=== PATIENT | male | born 1985 | race Caucasian/White ===

== ENCOUNTER 2018-06-10 08:49 | Emergency (ER) | payer SELFPAY ==
[2018-06-10 08:50] VITALS: BP 148/95; PULSE 90; RESP 20; TEMP 36.6; O2SAT 98; BMI 54.2
[2018-06-10] MEDS: Fluorescein 1 MG STRIP 1 STRIP OPHTHALMIC (09:47)
[2018-06-10] MEDS: Tetracaine 0.5% Ophthalmic Bottle OPHTHALMIC (09:48)
--- NOTE | 2018-06-10 09:53 | ED.VISSUMM ---
- ER Visit Summary Date of Service: 06/10/18 Chief Complaint: Right eye pain History of Present Illness: The patient is a 32 M with no primary care physician. He does not wear glasses or contacts. Reports he has pain in his right eye that began yesterday. He does complain of foreign body sensation, photophobia, and blurred vision. He denies any known injury. No direct trauma. No chemical exposure. Is not been welding. Physical Examination: Vitals: Stable. Afebrile. General: Well-nourished and well-developed. Head: Normocephalic atraumatic. Right eye: Diffuse conjunctival injection. He has a corneal abrasion at 5:00. There is no Shaggy sign. Pupils are equal round reactive to light. Neck: Supple, no lymphadenopathy. No JVD. Nontender. Cardiovascular: Regular rate and rhythm. No murmurs. Respiratory: No respiratory distress. Clear to auscultation bilaterally. Abdominal: Soft, nontender, nondistended, normal bowel sounds. No guarding, rebound, or peritoneal signs. Back: Nontender. Extremities: Nontender, no edema. Skin: Normal color, no rash. Neurologic: Alert and oriented ?3. Cranial nerves II through XII are intact. Normal strength and sensation. Psych: Normal affect. Emergency Department Course and Treatment: Patient had erythromycin ointment placed. He is resting comfortably. Treatment Plan: Patient will be discharged instructed to follow Dr. Garcia in 2 days for a repeat exam. He will be discharged with erythromycin ointment. Return to the emergency department for any worsening symptoms. Disposition: To home in improved and stable condition. Impression: 1. Corneal abrasion on right. This note was generated with [employer] dictation software. It may contain incorrect words, spelling, and punctuation that were not noted in review of the chart prior to signing ED Disposition - Plan for ED Patient: Disposition: Home or Assisted Living Instructions: ED Eye Injury Corneal Abrasion Referrals: Adrienne Garcia MD [STAFF PHYSICIAN] - 2 Days
[2018-06-10] MEDS: Erythromycin Base 1 OPTH.TUBE 1 APPLIC RIGHT EYE (10:18)
== END 2018-06-10 10:20 | disposition home or self-care (01) ==
LOC: ED 09:08
PROVIDERS: Emergency Provider Emergency Medicine
DX: S05.01XA Injury of conjunctiva and corneal abrasion without foreign body, right eye, initial encounter (principal); X58.XXXA Exposure to other specified factors, initial encounter; Y93.9 Activity, unspecified; Y92.9 Unspecified place or not applicable; Z72.0 Tobacco use
CPT/HCPCS: 99283

== ENCOUNTER 2018-06-12 19:21 | Emergency (ER) | payer SELFPAY ==
[2018-06-12 19:22] VITALS: BP 141/106; PULSE 105; RESP 14; TEMP 37.2; O2SAT 97; BMI 55.7
--- NOTE | 2018-06-12 22:04 | ED.VISSUMM ---
- ER Visit Summary Date of Service: 06/12/18 Chief Complaint: Right eye redness and pain History of Present Illness: The patient is a 32 M who presents with pain and redness to his right eye that has been constant for the past 2 days. Patient was seen here 2 days ago and was diagnosed with a corneal abrasion. Patient was given erythromycin ophthalmic ointment at that time. Patient states that his redness has not improved. Patient states he attempted to patch his eye closed at home with a Band-Aid. Patient admits to some discharge and drainage from the eye. Patient admits to some blurred vision. Physical Examination: Vital signs are stable. Patient is afebrile. Patient is in no acute distress. Pupils are equal, round, and reactive to light bilateral. Extraocular muscles are intact. Conjunctiva was injected on the right. Anterior chamber was clear. Tetracaine and fluorescein dye was applied. There is a large corneal abrasion over the central and inferior aspect of the right cornea. Shaggy sign was negative. There is no ulceration noted. Patient was unable to tolerate funduscopic examination. The remaining physical exam was within normal limits. Emergency Department Course and Treatment: Patient was given gentamicin ophthalmic ointment here. Patient was given a prescription for gentamicin ophthalmic drops. Patient was instructed to follow-up with ophthalmology in 2-3 days. Patient understood and was agreeable with the plan. All questions were answered. Disposition: Discharge home Impression: Corneal abrasion right eye This note was generated with [employer] dictation software. It may contain incorrect words, spelling, and punctuation that were not noted in review of the chart prior to signing ED Disposition - Plan for ED Patient: Disposition: Home or Assisted Living Instructions: ED Eye Injury Corneal Abrasion Prescriptions: Gentamicin Ophthalmic Drops [Garamycin Ophthalmic Drops] 1 drp RIGHT EYE Q4 3 Days #1 [email or web address] Referrals: Care Physician,No Primary [Primary Care Provider] - Reynaldo Keller MD [STAFF PHYSICIAN] - 3-5 Days
[2018-06-12] MEDS: Fluorescein 1 MG STRIP 1 STRIP RIGHT EYE (22:19)
[2018-06-12] MEDS: Tetracaine 0.5% Ophthalmic Bottle 1 DRP RIGHT EYE (22:19)
[2018-06-12] MEDS: Gentamicin Sulfate 1 OPTH.BTL 1 DRP RIGHT EYE (22:27)
[2018-06-12 22:28] VITALS: BP 152/95; PULSE 98; RESP 14; O2SAT 98
== END 2018-06-12 22:30 | disposition home or self-care (01) ==
PROVIDERS: Emergency Provider Emergency Medicine
DX: S05.01XA Injury of conjunctiva and corneal abrasion without foreign body, right eye, initial encounter (principal); X58.XXXA Exposure to other specified factors, initial encounter; Y93.9 Activity, unspecified; Y92.9 Unspecified place or not applicable; Z72.0 Tobacco use
CPT/HCPCS: 99282

== ENCOUNTER 2018-07-04 09:22 | Emergency (ER) | payer SELFPAY ==
[2018-07-04 09:23] VITALS: BP 154/89; PULSE 103; RESP 16; TEMP 36.7; O2SAT 97; BMI 50.8
--- NOTE | 2018-07-04 10:31 | ED.VISSUMM ---
- ER Visit Summary Date of Service: 07/04/18 Chief Complaint: Left eye watering and redness History of Present Illness: The patient is a 32 M who noted an itchy sensation to his left eye last night. He was trying to rub it gently with a tissue. He woke this morning with his eye red and watering. He is prescribed glasses but does not wear them. Patient was recently seen for corneal abrasion to his right eye that is now improved. He did not follow-up with ophthalmology. Physical Examination: Vital signs significant only for blood pressure 154/89. Head neck examination reveals left eye to be diffusely injected and watering. He has mild eyelid edema. Right eye is clear. Extraocular movements are fully intact and pupils equal to right side and reactive. Test Results: [] Emergency Department Course and Treatment: Tetracaine is applied to the left eye. Fluorescein is applied and there is a tiny abrasion at the 6 o'clock position. I believe the patient has conjunctivitis and caused a small corneal abrasion when he was rubbing his eye. His eye is certainly more diffusely injected with watering and slight drainage I would expect for a simple small abrasion. Patient already has gentamicin ointment at home that he will use at bedtime. We will write him for gentamicin drops. He will be referred to ophthalmology for follow-up as needed. Treatment Plan: [] Disposition: Discharge Impression: 1. Conjunctivitis 2. Corneal abrasion This note was generated with [employer] dictation software. It may contain incorrect words, spelling, and punctuation that were not noted in review of the chart prior to signing ED Disposition - Plan for ED Patient: Referrals: Care Physician,No Primary [Primary Care Provider] -
--- NOTE | 2018-07-04 10:33 | ED.DEP ---
ED Disposition - Plan for ED Patient: Disposition: Home or Assisted Living Instructions: ED Eye Injury Corneal Abrasion, ED Conjunctivitis Nonspecific Referrals: Binu Morales MD [STAFF PHYSICIAN] - 3-5 Days if not improving
[2018-07-04] MEDS: Tetracaine 0.5% Ophthalmic Bottle 1 DRP LEFT EYE (10:48)
[2018-07-04] MEDS: Gentamicin Sulfate 1 OPTH.BTL 2 DRP LEFT EYE (10:48)
[2018-07-04] MEDS: Fluorescein 1 MG STRIP 1 STRIP LEFT EYE (10:48)
== END 2018-07-04 10:55 | disposition home or self-care (01) ==
LOC: ED 10:39
PROVIDERS: Emergency Provider Emergency Medicine
DX: H10.32 Unspecified acute conjunctivitis, left eye (principal); S05.02XA Injury of conjunctiva and corneal abrasion without foreign body, left eye, initial encounter; X58.XXXA Exposure to other specified factors, initial encounter; Y93.89 Activity, other specified; Y92.9 Unspecified place or not applicable; Z72.0 Tobacco use
CPT/HCPCS: 99282

== ENCOUNTER 2019-08-12 18:45 | Emergency (ER) | payer MEDICAID, SELFPAY ==
[2019-08-12] VITALS (9 sets, daily range): BP systolic 127–174; BP diastolic 84–115; PULSE 85–95; RESP 16–29; TEMP 36.4–36.7; O2SAT 95–98; BMI 54.0
--- NOTE | 2019-08-12 19:05 | EKG12_ITS ---
Test Reason : CP Blood Pressure : / mmHG Vent. Rate : 092 BPM Atrial Rate : 092 BPM P-R Int : 158 ms QRS Dur : 096 ms QT Int : 350 ms P-R-T Axes : 043 024 054 degrees QTc Int : 432 ms Normal sinus rhythm Normal ECG When compared with ECG of 16-MAR-2016 20:42, No significant change was found Confirmed by ANNAMARIE BLANCO, LIYAH ([id number]), editor farm journal SYMONE MEDRANO ([id number]) on 08/24/2019 3:51:42 PM Referred By: GRACIA Confirmed By:LIYAH DE LUNA MD
--- NOTE | 2019-08-12 19:08 | ED.DCSUM_ITS ---
- ER Visit Summary Date of Service: 08/12/19 Chief Complaint: Chest pain History of Present Illness: The patient is a 33 M who presents with chest pain that has been getting progressively worse over the past 4 days. Patient describes his pain as sharp. Patient states the pain is over the left lower chest area. Patient states the pain is worse with coughing, talking, and movement of his left arm. Patient admits to a cough but denies any sputum production. Patient denies any fevers but admits to some sweats. Patient admits to some shortness of breath because he cannot take a deep breath. Patient states he has been unable to sleep for the past 4 days because of the pain. Patient admits to some lightheadedness. Patient is a smoker. Patient has no other cardiac or PE risk factors. Physical Examination: Vital signs are stable except for an elevated blood pressure of 173/115 and a mild tachypnea of 29. Patient is afebrile. Patient is in no acute distress. Oral mucosa is pink and moist. Neck is supple. Trachea is midline. There is no JVD noted. Heart was regular rate and rhythm. Lungs are clear and equal bilaterally. There is left lower chest tenderness with palpation. Abdomen is soft. Bowel sounds are normal. There is mild left upper quadrant tenderness. There is no rebound or guarding noted. Skin is warm dry. Cranial nerves II through XII are intact. There are no focal motor or sensory deficits noted. Patient does fall asleep on examination. Patient does respond to verbal stimuli. Extremities are intact. There is no calf tenderness or edema. Test Results: EKG shows a normal sinus rhythm with a rate of 92. There are no acute ST or T wave changes. This was unchanged compared to previous EKG dated 03/16/2016. CBC shows a mild leukocytosis of 14.9. Basic metabolic profile was within normal limits. Troponin was normal. Portable chest x-ray showed questionable pulmonary edema versus atypical viral infection. Patient was still having persistent pain that was pleuritic in nature. CTA of the chest was obta ined. There is no evidence of PE. There is nonspecific interstitial thickening worse in the lower lobes. There is no acute infiltrate. These were interpreted by the radiologist and reviewed by myself. Emergency Department Course and Treatment: Patient was started on Rocephin and Zithromax here. Because of the nonspecific findings in the lower lobes, COVID testing was obtained along with RSV, influenza, and strep swabs. A respiratory panel was also obtained. Patient's vital signs remained stable. Patient was feeling better on reevaluation. Patient will be discharged home. Patient was given a prescription for Zithromax. Patient was also given a prescription for a short course of [place] and a prescription for Tessalon Perles. Patient was instructed to follow-up with his primary care physician for results of his COVID testing and respiratory panel. Patient understood and was agreeable with the plan. All questions were answered. Disposition: Discharge home Impression: 1. Pneumonia This note was generated with [employer] dictation software. It may contain incorrect words, spelling, and punctuation that were not noted in review of the chart prior to signing ED Disposition - Plan for ED Patient: Disposition: Home or Assisted Living Diagnosis: Pneumonia Instructions: ED PNEUMONITIS Adult Prescriptions: Hydrocodone Bitart/Apap 5-325 [[place] 5MG-325MG] 1 tab PO Q6H PRN PRN 3 Days #10 tab PRN Reason: Pain Prescription Printed Benzonatate [Tessalon Perle] 200 mg PO TID PRN PRN #20 cap PRN Reason: Cough Prescription Printed Azithromycin [Zithromax] 250 mg PO DAILY #4 tab Prescription Printed Referrals: Care Physician,No Primary [NON-STAFF] - Binu Beck MD [NON-STAFF] - 3-5 Days
[2019-08-12 19:19] LABS: Absolute Neutrophil Count 11.7 X10^3/uL (2.0-7.7); Basophil# 0.06 X10^3/uL; Basophil% 0.4 % (0-1); Eosinophil# 0.03 X10^3/uL; Eosinophils% 0.2 % (0-5); Hematocrit 48.1 % (40-54); Hemoglobin 15.7 g/dL (13.0-16.5); Lymphocyte % 14.7 % (19-41); Mean Corp Hgb Conc 32.6 g/dL (32-36); Mean Corpuscular Hgb 29.4 pg (27.0-32.0); Mean Corpuscular Volume 90.1 fL (80-94); Mean Platelet Vol. 9.4 fl (6.2-12.0); Monocyte% 4.7 % (0-10); NRBC Flagged by Analyzer 0 % (0-5); Neutrophil # 11.71 X10^3/uL (2.7-7.7); Neutrophil % 78.5 % (47-70); Platelet Count 329 K/mm3 (150-450); RBC Distribution Width SD 45.8 fl (35.1-43.9); Red Blood Count 5.34 M/mm3 (4.6-6.2); White Blood Count 14.9 K/mm3 (4.4-11.0)
[2019-08-12] MEDS: Morphine 2 MG/ML Syringe IV (19:22)
[2019-08-12] MEDS: Aspirin 81 MG TAB.CHEW 324 MG PO (19:23)
[2019-08-12 19:38] LABS: Anion Gap 4 (5-15); BUN 9 mg/dL (7-18); BUN/Creat Ratio 10.6 RATIO (10-20); Calcium,Total 9.5 mg/dL (8.5-10.1); Chloride 106 mmol/L (98-107); Creatinine, Serum 0.85 mg/dL (0.70-1.30); EST Glomerular Filtration Rate 110 mL/min (>60); Est Glom Filt Rate - Afr Amer 133 mL/min (>60); Estimated Creatinine Clearance 136.94 ml/min; Glucose 114 mg/dL (74-106); Potassium 4.2 mmol/L (3.5-5.1); Sodium Level 141 mmol/L (136-145)
--- NOTE | 2019-08-12 19:40 | RAD_ITS ---
STUDY: X-RAY CHEST REASON FOR EXAM: Male, 33 years old. CHEST PAIN TECHNIQUE: 2 frontal views of the chest COMPARISON: 03/16/2016. FINDINGS: Cardiac silhouette poorly assessed. Pulmonary vascularity increased. Aorta unremarkable. No focal airspace opacities. No pleural effusions. Upper abdomen unremarkable. Osseous structures intact. No pneumothorax. RAD/Chest 1 View (Portable) IMPRESSION: Increased pulmonary vascular markings may indicate pulmonary edema versus an atypical viral infection as clinically indicated. Electronically Signed: Nelson Paredes, at 20:18 EDT Tel , Service support ,
--- NOTE | 2019-08-12 20:46 | CT_ITS ---
STUDY: CTA CHEST REASON FOR EXAM: Male, 33 years old. SOB,CHEST PAIN AND COUGH RADIATION DOSAGE (If Supplied By Facility): CTDIvol = ( 12.59 ) mGy, DLP = ( 848.37 ) mGycm TECHNIQUE: The examination was performed with the intravenous administration of 100ML ISOVUE 370`. Post-processing of the angiographic images was performed, with multiplanar reformation and 3D reconstruction. Individualized dose optimization techniques were used for this CT. COMPARISON: None. FINDINGS: There is less than optimal enhancement of the pulmonary arteries particularly within the subsegmental vessels due to suboptimal bolus technique. However there is no definitive evidence for intraluminal clot.. Normal thoracic aorta and visualized great vessels. There is no demonstrated aortic dissection. Normal heart and pericardium. Normal mediastinum. Normal hilar regions. Normal visualized trachea and bronchi. The lungs are well expanded. There is mild interstitial thickening more pronounced in the mid and lower lung zones. There is minor atelectasis within the dependent portion of the lungs There is no focal infiltration or pulmonary nodules.. Normal pleura. Normal chest wall structures. Normal osseous structures. Normal visualized upper abdomen. CT/CTA Chest W/WO Contrast IMPRESSION: Mild nonspecific interstitial thickening most pronounced in the lower lobes. No focal infiltration.. Limited study of the pulmonary arteries without definitive evidence for intraluminal clot however if strong clinical suspicion for pulmonary embolus Doppler scan of the deep venous system of lower extremities recommended for further evaluation. Electronically Signed: Kvng Quinteros MD at 21:52 EDT , Service support ,
[2019-08-12] MEDS: Morphine 4 MG/ML Syringe IV (21:03)
--- NOTE | 2019-08-12 21:07 | ED.RN ---
called and updated on patients condition and status
[2019-08-12] MEDS: Ceftriaxone 1 GM/50 ML BAG IV (21:32)
== END 2019-08-12 23:28 | disposition home or self-care (01) ==
PROVIDERS: Emergency Provider Emergency Medicine; PCP Family Medicine
DX: J18.9 Pneumonia, unspecified organism (principal); F17.200 Nicotine dependence, unspecified, uncomplicated
CPT/HCPCS: 71045; 71275; 80048; 84484; 85025; 87633; 87635; 87804; 87807; 87880; 93005; 94799; 96365; 96367; 96375; 96376; 99285; G2023; J7030; J7050; Q9967; A4216; U0004

== ENCOUNTER 2021-02-16 15:17 | Outpatient (CLI) | payer MEDICAID, SELFPAY ==
[2021-02-16] MEDS: 0.9% Saline Lock 10 ML Syringe IV (15:38)
[2021-02-16 15:46] VITALS: BP 155/98; PULSE 16; RESP 20; TEMP 36.7; O2SAT 100; BMI 52.2
[2021-02-16 16:22] VITALS: BP 136/80; PULSE 100; RESP 16; TEMP 36.7; O2SAT 95
[2021-02-16 17:20] VITALS: BP 133/86; PULSE 98; RESP 20; TEMP 36.7; O2SAT 96
== END 2021-02-16 17:20 | disposition home or self-care (01) ==
LOC: MS3OUT 15:18 → MS3 15:18
PROVIDERS: PCP Family Medicine; Referring Provider Nurse Practitioner Adult Health; Visit Provider Nurse Practitioner Adult Health
DX: Z23 Encounter for immunization (principal); U07.1 COVID-19
CPT/HCPCS: J7050; M0245; Q0245; A4216

== ENCOUNTER 2021-07-26 21:00 | Emergency (ER) | payer MEDICAID, SELFPAY ==
[2021-07-26 21:00] VITALS: BP 204/112; PULSE 98; RESP 18; TEMP 36.6; O2SAT 97; BMI 52.6
--- NOTE | 2021-07-26 21:44 | RAD_ITS ---
STUDY: X-RAY - LEFT ANKLE REASON FOR EXAM: Male, 35 years old. pain TECHNIQUE: 3 view(s) of the ankle. COMPARISON: None. FINDINGS: Normal visualized distal tibia and fibula. Normal medial and lateral malleoli. Normal tibiotalar articulation and ankle mortise. A very small posterior calcaneal spurs present. The visualized subtalar, talonavicular, calcaneocuboid and tarsal articulations are normal. Soft tissue swelling surrounds the ankle. RAD/Ankle min 3 Views IMPRESSION: Soft tissue swelling. No acute fracture or dislocation. Electronically Signed: Alan Emmanuel MD at 22:28 EDT ,
--- NOTE | 2021-07-26 22:30 | EDS_ITS ---
HPI History of Present Illness Chief Complaint: Lower Extremity Injury Informant: patient Narrative Narrative: Worsening left ankle pain for the past 2 days. Started new job on his feet 8 days ago. No direct injuries. Was told neuropathy in the past he is a prediabetic. He is not on a neuropathic medicine. He states [id number] sensations previously. Currently pain to the lateral ankle. He had to leave work and came here. He has been taking ibuprofen 400 mg every 4-6 hours last dose was 2 hours prior to arrival. Prior similar symptoms: [facility] Medical History Chest pain Home Medications fluoxetine 20 mg PO DAILY 07/26/21 [History Last Taken Unknown] ibuprofen 600 mg PO 4X/DAY PRN #20 tab 07/26/21 [Rx Last Taken Unknown] Allergy/AdvReac Type Severity Reaction Status Date / Time No Known Allergies Allergy Verified 07/26/21 21:03 Social History Smoking Status: Current every day smoker tobacco type: cigarettes ROS ROS ED Constitutional Constitutional ED: Denies chills, fever(s) or sweats Eyes Eyes: Denies change in vision ENT ENT ED: Denies dysphagia or sore throat Cardiovascular Cardiovascular: Denies chest pain, leg edema, palpitations or racing heartbeat Respiratory/Chest Respiratory/Chest: Denies cough, dyspnea or dyspnea on exertion Gastrointestinal Gastrointestinal: Denies abdominal pain, diarrhea, nausea or vomiting Genitourinary Genitourinary ED: Denies dysuria, hematuria or urinary frequency Musculoskeletal Musculoskeletal: Reports other Details: Left ankle pain ; Denies back pain, extremity pain or neck pain Integumentary Denies rash or wounds Neurologic Neurologic: Denies headache(s), paresthesias or weakness EXAM Physical Exam Const Vital Signs: 07/26/21 21:00 Temperature 97.9 F Temperature Source Temporal Pulse Rate 98 Respiratory Rate 18 Blood Pressure 204/112 H Blood Pressure Mean 142 Pulse Ox 97 Oxygen Delivery Method Room Air Positive well nourished and well developed General Appearance ED: well developed and NAD HEENT Reports moist mucous membranes normocephalic and atraumatic Eyes PERRL, EOMs intact bilaterally and conjunctivae normal General Eye ED: Yes normal appearance of both eyes Neck no lymphadenopathy and supple General: Negative for tenderness Chest Wall Chest: Negative for tenderness Resp normal respiratory effort and normal air movement Effort and Inspection: symmetric chest movement; Negative for respiratory distress Cardio regular rate, regular rhythm and no murmurs Peripheral Pulses: pulses 2+ throughout GI normal to inspection, nondistended, normoactive bowel sounds and non-tender Palpation: Negative for guarding or rebound tenderness present Back/Spine no CVA tenderness and no thoracic nor lumbar tenderness Extremity Extremity Narrative: Left lower extremity: No knee tenderness there is mild swelling lateral malleolus tenderness along the anterior and inferior ligaments of the ankle. No medial mall tenderness no foot tenderness. Neuro vas intact distally. General Extremety ED: Negative for edema or tenderness General Extremity: Negative for edema Neuro oriented x3 and no sensory deficits noted Sensorium / Orientation: awake and alert Skin no rashes or lesions noted and no wounds MDM MDM MDM Narrative Medical decision making narrative: Patient lateral ankle pain on the ligaments with swelling. X-ray 3 views left ankle reviewed by myself and read by radiology as soft tissue swelling with no fracture or dislocation. Took ibuprofen before he came. He is provided an Aircast for support. He is able to ambulate. Work note given. Edition elevated blood pressure on arrival, he is asymptomatic he does have a history of hypertension on medications with no missed doses. Discussed follow-up with his doctor for recheck for additional medicines as needed. All questions were answered. Radiography Diagnostic Testing: Clinical Impression(s) from Imaging Studies Ankle X-Ray 07/26/21 21:44 IMPRESSION: Soft tissue swelling. No acute fracture or dislocation. Electronically Signed: Alan Emmanuel MD at 22:28 EDT , Discharge Plan Triage Chief Complaint: Lower Extremity Injury ED Provider: Avery Tse Dx/Rx/DC Orders Clinical Impression: Left ankle sprain, Elevated blood pressure reading with diagnosis of hypertension Instructions: What Is High Blood Pressure?, ED Air Stirrup Ank Brace Inf Td Prescriptions: New ibuprofen 600 MG tablet 600 mg PO 4X/DAY PRN (Reason: Pain Or Fever) Qty: 20 RF: 0 No Action fluoxetine 20 mg capsule 20 mg PO DAILY RF: 0 Primary Care Provider: Reji Monae Referrals: Reji Monae MD [Primary Care Provider] - 5-7 Days Activity Restrictions/Additional Instructions: Left ankle x-ray negative use the splint for support. Use ibuprofen. Continue your home blood pressure medicines keep an eye on the blood pressure, follow-up with your doctor for recheck and additional medications as needed. Disposition Disposition: Home, Self Care Discharge Date/Time: 07/26/21 22:44
== END 2021-07-26 22:44 | disposition home or self-care (01) ==
PROVIDERS: Emergency Provider Emergency Medicine; PCP Family Medicine; Visit Provider Emergency Medicine
DX: S93.402A Sprain of unspecified ligament of left ankle, initial encounter (principal); R03.0 Elevated blood-pressure reading, without diagnosis of hypertension; F17.210 Nicotine dependence, cigarettes, uncomplicated; X58.XXXA Exposure to other specified factors, initial encounter
CPT/HCPCS: 73610; 99283

== ENCOUNTER 2022-08-19 13:21 | Emergency (ER) | payer MEDICAID, SELFPAY ==
[2022-08-19 13:22] VITALS: BP 156/81; PULSE 97; RESP 18; TEMP 36.6; O2SAT 99; BMI 45.0
--- NOTE | 2022-08-19 13:42 | CT_ITS ---
STUDY: CT ABDOMEN AND PELVIS WITH CONTRAST REASON FOR EXAM: Male, 36 years old. Rectal bleeding. Abdominal pain. RADIATION DOSAGE (If Supplied By Facility): CTDIvol = ( 15.42 ) mGy, DLP = ( 1493.98 ) mGycm TECHNIQUE: Transaxial images were obtained from the dome of the diaphragm to the symphysis pubis without oral contrast. IV 100mL Isovue-300 was administered. Sagittal and coronal images were reconstructed. Individualized dose optimization techniques were used for this CT. COMPARISON: Comparison is made with prior study dated July 07, 2014. FINDINGS: The visualized lung bases are unremarkable. The visualized portions of the heart are within normal limits. Normal liver. Normal gallbladder and extrahepatic biliary system. Borderline splenomegaly. Normal pancreas. Normal bilateral adrenal glands. Normal right kidney. Normal left kidney. Normal visualized stomach. Normal small intestine. There are scattered colonic diverticula consistent with diverticulosis. The appendix is visualized and appears normal. Normal abdominal aorta. Normal inferior vena cava. There is borderline retroperitoneal lymphadenopathy with enlarged nodes no greater than 10mm in the short axis diameter. Normal urinary bladder. There is a right-sided inguinal hernia containing adipose tissue. Straightening of the normal lumbar lordosis. CT/Abdomen/Pelvis W IV Cont ONLY IMPRESSION: Scattered sigmoid diverticula. Electronically Signed: Parviz Gomez MD at 14:55 EDT ,
--- NOTE | 2022-08-19 13:45 | ED.VIS.GI ---
HPI HPI - GI History of Present Illness Chief Complaint: Other, Pain/Inj Detail of Chief Complaint: Rectal pain and bleeding. Informant: patient Abdominal Pain/Flank Pain Onset: Days Context: Gradual Onset Timing: Intermittent Quality: Aching Current Severity: Mild Maximum Severity: Mild Worsened by: Nothing Relieved by: Nothing Nausea/Vomiting/Emesis GI Symptom: Negative for Nausea or Vomiting Diarrhea/Melena/Hematochezia GI Symptom: Positive for Hematochezia; Negative for Diarrhea or Melena Onset: Days Severity: Mild Associated Symptoms Associated Symptoms: Negative for Dysuria, Frequency, Hematuria or Urgency Narrative Narrative: 36-year-old male no stated past medical history. No prior abdominal surgeries. States for the last week he has had rectal pain with rectal bleeding. He has never had any history of hemorrhoids. He is never had a colonoscopy. He denies any fever or chills. He said it hurts to sit down. He denies any dysuria. Prior similar symptoms: No Recent Illness/Hospitalization: No PFSH PFSH Medical History Chest pain no medical history Allergy/AdvReac Type Severity Reaction Status Date / Time No Known Allergies Allergy Verified 08/19/22 13:25 Surgical History no surgical history Social History Smoking Status: Current every day smoker tobacco type: cigarettes ROS ROS ED Review of Systems ROS Unobtainable: Denies due to encephalopathy Constitutional Constitutional ED: Denies chills or fever(s) ENT ENT ED: Denies ear pain Cardiovascular Cardiovascular: Denies chest pain Respiratory/Chest Respiratory/Chest: Denies cough or dyspnea Gastrointestinal Gastrointestinal: Reports other Details: Rectal bleeding and rectal pain ; Denies abdominal pain, constipation, diarrhea, melena, nausea or vomiting Genitourinary Genitourinary ED: Denies dysuria Musculoskeletal Musculoskeletal: Denies arthralgias Integumentary Denies abscess or Abrasions Neurologic Neurologic: Denies headache(s) Psychiatric Psychiatric: Denies anxiety Endocrine Endocrinology: Denies polydipsia Hematologic/Lymphatic Hematologic/Lymphatic: Denies easy bleeding Allergic/Immunologic Allergic/Immunologic ED: Denies mouth swelling or tongue swelling EXAM Physical Exam Narrative Exam Narrative: Failure male no acute distress. Vital signs stable afebrile. Does not look septic or toxic. No distress. H EENT exam unremarkable. Lungs are clear. Heart regular rhythm no murmur. Abdomen is morbidly obese but soft nontender normal bowel sounds no peritoneal signs. Rectal exam there is no external hemorrhoids. No external abscesses. He has mild severe rectal pain with palpation. He has loose brown stool noted. There is no blood or melena. Moving all 4 extremities. Neurologically he is awake and alert. Const Vital Signs: 08/19/22 13:22 Temperature 98 F Temperature Source Temporal Pulse Rate 97 Respiratory Rate 18 Blood Pressure 156/81 H Blood Pressure Mean 106 Pulse Ox 99 Positive well nourished and well developed; Negative for cachectic, contractures or unkempt General Appearance ED: well developed and NAD; Negative for unkempt, cachectic, contractures or pallor Nutritional Appearance: Negative for cachectic HEENT Reports moist mucous membranes normocephalic and atraumatic; Negative for trauma or tenderness Eyes PERRL and EOMs intact bilaterally General Eye ED: Negative for pale conjunctiva or scleral icterus Neck no lymphadenopathy, supple and no JVD General: Negative for tenderness Carotids: Negative for other Lymph Lymphatic: Negative for other Resp normal respiratory effort and clear to auscultation bilaterally Effort and Inspection: Negative for respiratory distress Auscultation: Negative for rales, rhonchi or wheezes Cardio regular rate, regular rhythm, S1 normal heart sound, S2 normal heart sound and no murmurs Rate: Negative for bradycardia or tachycardic Rhythm: Negative for abnormal rhythm GI non-tender, non-distended and no masses GI Narrative: Rectal exam showed no external hemorrhoids. I did not palpate any mass or internal hemorrhoids. I do not see any signs of an abscess. There was loose brown stool and no blood. Inspection: Negative for abdominal distention Auscultation: normoactive bowel sounds Palpation: soft; Negative for tender, guarding, rigid, mass or pulsatile mass Back/Spine no CVA tenderness General Back: Negative for CVA tenderness Cervical Spine: Negative for cervical spine tenderness Thoracic Spine / Upper Back: Negative for thoracic spinal tenderness Lumbar Spine / Lower Back: Negative for lumbar spinal tenderness Coccyx: Negative for other Extremity full ROM General Extremety ED: Negative for edema or tenderness General Extremity: Negative for edema Neuro CN's II-XII intact bilaterally and moves all extremities Sensorium / Orientation: alert, oriented to person, oriented to place and oriented to time; Negative for orientation impaired, confused, lethargic or stuporous Motor Exam: strength 5/5 throughout Psych mental status grossly normal and thought process normal Appearance: Negative for unkempt Attitude: No agitated Mood & Affect: Negative for depressed, anxious or tearful Skin no wounds General Skin Exam: Negative for jaundice or pallor Lesions: no lesions Rashes: no rashes Trauma: Negative for abrasion Nails: Negative for discolored MDM MDM MDM Narrative Medical decision making narrative: 36-year-old male with rectal pain and bleeding. There is no external hemorrhoid or abscess. There is nothing palpable in his rectum. He has brown stool. This is a larger gentleman. I will get screening labs. And a CT abdomen and pelvis in case of some type of rectal abscess at this very well could be an internal hemorrhoid. Repeat exam patient doing well at 3 PM. I explained that we did have a specific cause. If he has continued rectal bleeding he may need a colonoscopy. This to be treated as an internal hemorrhoid because there is nothing on the outside no signs of an abscess. Hemorrhoid cream. Warm bath. Follow-up if not improving. Lab Data Attestation: I reviewed the patient's lab results. Lab results narrative: CBC is normal. White count is 10.7. H&H is 16.7 and 48. Platelets 254. Electrolytes unremarkable gap is 6. Normal BUN and creatinine. Glucose 127. CT only says incidental finding of sigmoid diverticula. No rectal abscess or soft tissue mass. Labs: Laboratory Results - last 24 hr 08/19/22 08/19/22 13:52 13:52 WBC 10.7 RBC 5.49 Hgb 16.7 H Hct 48.9 MCV 89.1 MCH 30.4 MCHC 34.2 RDW Std Deviation 42.2 RDW Coeff of Anuja 12.8 Plt Count 254 MPV 9.6 Immature Gran % (Auto) 0.700 Neut % (Auto) 62.3 Lymph % (Auto) 25.9 [place] % (Auto) 6.8 Eos % (Auto) 3.4 Baso % (Auto) 0.9 Absolute Neuts (auto) 6.6 Absolute Lymphs (auto) 2.76 Nucleated RBC % 0 Sodium 141 Potassium 4.2 Chloride 110 H Carbon Dioxide 25.0 Anion Gap 6 BUN 16 Creatinine 1.03 Estim Creat Clear Calc 109.87 Est GFR (MDRD) Af Amer 105 Est GFR (MDRD) Non-Af 87 BUN/Creatinine Ratio 15.5 Glucose 127 H Calcium 8.7 Radiography Diagnostic Testing: Clinical Impression(s) from Imaging Studies Abdomen/Pelvis CT 08/19/22 13:42 IMPRESSION: Scattered sigmoid diverticula. Electronically Signed: Parviz Gomez MD at 14:55 EDT , Discharge Plan Triage Chief Complaint: Other, Pain/Inj ED Provider: J Carlos Wharton Dx/Rx/DC Orders Clinical Impression: Rectal pain, Rectal bleeding Instructions: ED Lower GI Bleeding (Stable) Primary Care Provider: Reji Monae Referrals: Reji Monae MD [Primary Care Provider] - As soon as possible Activity Restrictions/Additional Instructions: Your CAT scan and labs are unremarkable. Most likely the rectal pain and bleeding is from an internal hemorrhoid. There are no external hemorrhoids. There is no signs of an abscess. Treat with warm baths and hemorrhoid cream. Follow-up with your doctor if not improving you may need to get referred to have a colonoscopy to determine the cause of the bleeding. Return if fever or feeling significantly worse or heavy bleeding with clots. Disposition Disposition: Home, Self Care
[2022-08-19 13:59] LABS: Absolute Lymphocyte Count 2.76 X10^3/uL (0.83-4.51); Absolute Neutrophil Count 6.6 X10^3/uL (2.0-7.7); Basophil% 0.9 % (0-1); Eosinophil# 0.36 X10^3/uL; Eosinophils% 3.4 % (0-5); Hematocrit 48.9 % (40-54); Hemoglobin 16.7 g/dL (13.0-16.5); Lymphocyte # 2.76 X10^3/ul (0.83-4.51); Lymphocyte % 25.9 % (19-41); Mean Corp Hgb Conc 34.2 g/dL (32-36); Mean Corpuscular Hgb 30.4 pg (27.0-32.0); Mean Corpuscular Volume 89.1 fL (80-94); Mean Platelet Vol. 9.6 fl (6.2-12.0); Monocyte# 0.73 X10^3/uL; Monocyte% 6.8 % (0-10); NRBC Flagged by Analyzer 0 % (0-5); Neutrophil # 6.64 X10^3/uL (2.7-7.7); Neutrophil % 62.3 % (47-70); Platelet Count 254 K/mm3 (150-450); RBC Distribution Width CV 12.8 % (11.6-14.6); RBC Distribution Width SD 42.2 fl (35.1-43.9); Red Blood Count 5.49 M/mm3 (4.6-6.2); White Blood Count 10.7 K/mm3 (4.4-11.0)
[2022-08-19 14:13] LABS: Anion Gap 6 (5-15); BUN 16 mg/dL (7-18); BUN/Creat Ratio 15.5 RATIO (10-20); Calcium,Total 8.7 mg/dL (8.5-10.1); Chloride 110 mmol/L (98-107); Creatinine, Serum 1.03 mg/dL (0.70-1.30); EST Glomerular Filtration Rate 87 mL/min (>60); Est Glom Filt Rate - Afr Amer 105 mL/min (>60); Estimated Creatinine Clearance 109.87 ml/min; Glucose 127 mg/dL (74-106); Potassium 4.2 mmol/L (3.5-5.1); Sodium Level 141 mmol/L (136-145)
== END 2022-08-19 15:13 | disposition home or self-care (01) ==
PROVIDERS: Emergency Provider Emergency Medicine; PCP Family Medicine; Visit Provider Emergency Medicine
DX: K62.5 Hemorrhage of anus and rectum (principal); F17.210 Nicotine dependence, cigarettes, uncomplicated
CPT/HCPCS: 74177; 80048; 85025; 99283; A4216

== ENCOUNTER 2022-09-03 16:48 | Emergency (ER) | payer MEDICAID, SELFPAY ==
[2022-09-03 16:49] VITALS: BP 151/93; PULSE 102; RESP 20; TEMP 36.6; O2SAT 97; BMI 45.3
--- NOTE | 2022-09-03 17:52 | ED.RN ---
This RN informed pt that the MD would be in to see them shortly but that we are full and that they may have a short wait. Pt and sig other stated we should have just gone to urgent care. This RN said that was certainly an option. Pt rang out and said that they had in fact decided to go to urgent care instead for his ear ache as he believed he only needed ear drops anyway.
== END 2022-09-03 17:54 | disposition left against medical advice (07) ==
LOC: ED 17:54
PROVIDERS: PCP Family Medicine
DX: H92.09 Otalgia, unspecified ear (principal); Z53.21 Procedure and treatment not carried out due to patient leaving prior to being seen by health care provider
CPT/HCPCS: 99281

== ENCOUNTER 2022-12-06 11:13 | Emergency (ER) | payer SELFPAY ==
[2022-12-06 11:13] VITALS: BP 149/87; PULSE 89; RESP 18; TEMP 36.4; O2SAT 99; BMI 46.0
[2022-12-06 12:06] LABS: Absolute Lymphocyte Count 2.35 X10^3/uL (0.83-4.51); Absolute Neutrophil Count 6.3 X10^3/uL (2.0-7.7); Eosinophil# 0.37 X10^3/uL; Eosinophils% 3.7 % (0-5); Hematocrit 48.1 % (40-54); Hemoglobin 16.1 g/dL (13.0-16.5); Lymphocyte # 2.35 X10^3/ul (0.83-4.51); Lymphocyte % 23.7 % (19-41); Mean Corp Hgb Conc 33.5 g/dL (32-36); Mean Corpuscular Hgb 30.2 pg (27.0-32.0); Mean Corpuscular Volume 90.2 fL (80-94); Mean Platelet Vol. 9.4 fl (6.2-12.0); Monocyte# 0.77 X10^3/uL; Monocyte% 7.8 % (0-10); NRBC Flagged by Analyzer 0 % (0-5); Neutrophil # 6.27 X10^3/uL (2.7-7.7); Neutrophil % 63.3 % (47-70); Platelet Count 240 K/mm3 (150-450); RBC Distribution Width CV 12.6 % (11.6-14.6); RBC Distribution Width SD 41.5 fl (35.1-43.9); Red Blood Count 5.33 M/mm3 (4.6-6.2); White Blood Count 9.9 K/mm3 (4.4-11.0)
[2022-12-06 12:07] LABS: Bacteria 0 SEEN /hpf (None Seen); Mucous, Urine 0 SEEN /hpf (<or=2+); Red Blood Cells-Urine 0 SEEN /hpf (0-5); White Blood Cells 0 SEEN /hpf (0-5)
[2022-12-06 12:09] LABS: Color, Urine Yellow (Yellow); Glucose, Dipstick Normal (Normal); Ketone-Dipstick Negative (Negative); Leukocyte Esterase-Dipstick Negative /ul (Negative); Nitrite-Dipstick Negative (Negative); Occult Blood-Urine 25 /ul (Negative); Protein-Dipstick 15 mg/dl (Negative); Urine Bilirubin Dipstick Negative (Negative); Urine Clarity Clear (Clear); Urine Urobilinogen Normal (Normal); Urine pH 6.5 (5.0 - 8.0)
[2022-12-06 12:16] LABS: Squamous Epithelial Cells - UA 0-5 SEEN /hpf (0-5)
--- NOTE | 2022-12-06 12:21 | EDS_ITS ---
HPI History of Present Illness Chief Complaint: Flank Pain Informant: patient and spouse/S.O. Narrative Narrative: 7-year-old male presenting to the emergency room with left flank pain and vomiting. Patient states that on Friday (2 days ago) he developed pain in the left low back. Worse with bending over or with walking and with movement. This morning he woke with vomiting. He has had diarrhea over the past couple days. No reported fevers. He denies any radicular pain. He denies any known injuries to the low back. No hematuria or hematemesis. No history of kidney stone. Denies any abdominal pain. [facility] Medical History Chest pain Home Medications cyclobenzaprine 10 mg tablet 10 mg PO TID PRN Muscle Spasm #15 TABLETS 12/06/22 [Rx Last Taken Unknown] ibuprofen 600 mg tablet 600 mg PO Q6H PRN PRN pain #20 TABLETS 12/06/22 [Rx Last Taken Unknown] ondansetron 4 mg disintegrating tablet 4 mg PO Q6H PRN PRN Nausea #15 tabs 12/06/22 [Rx Last Taken Unknown] Allergy/AdvReac Type Severity Reaction Status Date / Time No Known Allergies Allergy Verified 12/06/22 11:14 Social History Smoking Status: Current every day smoker tobacco type: cigarettes ROS ROS ED Constitutional Constitutional ED: Denies chills, fever(s) or weight loss Eyes Eyes: Denies change in vision or diplopia ENT ENT ED: Denies ear pain, rhinorrhea or sore throat Cardiovascular Cardiovascular: Denies chest pain, orthopnea, palpitations or racing heartbeat Respiratory/Chest Respiratory/Chest: Denies cough, dyspnea or orthopnea Gastrointestinal Gastrointestinal: Reports diarrhea, nausea and vomiting; Denies abdominal pain Genitourinary Genitourinary ED: Denies dysuria, hematuria or urinary frequency Musculoskeletal Musculoskeletal: Reports back pain; Denies arthralgias or myalgias Integumentary Denies abscess or rash Neurologic Neurologic: Denies headache(s) or weakness Psychiatric Psychiatric: Denies anxiety, depression, suicidal ideation or suicidal thoughts Endocrine Endocrinology: Denies polydipsia, polyphagia or polyuria Allergic/Immunologic Allergic/Immunologic ED: Denies mouth swelling, tongue swelling or urticaria EXAM Physical Exam Const Vital Signs: 12/06/22 11:13 Temperature 97.5 F L Temperature Source Temporal Pulse Rate 89 Respiratory Rate 18 Blood Pressure 149/87 H Blood Pressure Mean 107 Pulse Ox 99 Oxygen Delivery Method Room Air Positive well nourished, well developed and obese General Appearance ED: well developed Nutritional Appearance: obese HEENT Reports normocephalic, head/scalp atraumatic and moist mucous membranes Eyes PERRL and EOMs intact bilaterally Neck no lymphadenopathy, supple and no JVD Resp normal respiratory effort and clear to auscultation bilaterally Cardio regular rate, regular rhythm and no murmurs GI normal to inspection, nondistended, normoactive bowel sounds and non-tender Palpation: soft Back/Spine Back/Spine Narrative: Patient complains of diffuse left low back tenderness to palpation out of proportion to examination. Pain with movement. There is no rashes. Extremity normal to inspection General Extremety ED: Negative for edema General Extremity: Negative for edema Neuro oriented x3 and CN's II-XII intact bilaterally Sensorium / Orientation: alert Motor Exam: strength 5/5 throughout Psych mental status grossly normal Mood & Affect: Negative for depressed or tearful Skin no rashes or lesions noted and no wounds MDM MDM MDM Narrative Medical decision making narrative: Urinalysis demonstrates no overt infection. White count normal at 9.9. Creatinine 0.81. Normal electrolytes. BUN of 8. Glucose 79. CT down pelvis demonstrates no acute findings. If the patient has 2 different states going on. I think the low back pain is musculoskeletal in nature given that it is reproducible with touch movement twisting. His vomiting I do not think it is connected to the low back pain. I Michelle write for some Zofran Flexeril and ibuprofen. Patient to advance diet as needed. Rest heat stretching follow-up with primary care. Lab Data Attestation: I reviewed the patient's lab results. Labs: Laboratory Results - last 24 hr 12/06/22 12:00 WBC 9.9 RBC 5.33 Hgb 16.1 Hct 48.1 MCV 90.2 MCH 30.2 MCHC 33.5 RDW Std Deviation 41.5 RDW Coeff of Anuja 12.6 Plt Count 240 MPV 9.4 Immature Gran % (Auto) 0.500 Neut % (Auto) 63.3 Lymph % (Auto) 23.7 [place] % (Auto) 7.8 Eos % (Auto) 3.7 Baso % (Auto) 1.0 Absolute Neuts (auto) 6.3 Absolute Lymphs (auto) 2.35 Nucleated RBC % 0 Sodium 140 Potassium 3.8 Chloride 108 H Carbon Dioxide 27.0 Anion Gap 5 BUN 8 Creatinine 0.81 Estim Creat Clear Calc 138.38 Est GFR (MDRD) Af Amer 139 Est GFR (MDRD) Non-Af 115 BUN/Creatinine Ratio 9.9 L Glucose 79 Calcium 9.1 Urine Color Yellow Urine Clarity Clear Urine pH 6.5 Ur Specific [place] 1.010 Urine Protein 15 H Urine Glucose (UA) Normal Urine Ketones Negative Urine Occult Blood 25 H Urine Nitrite Negative Urine Bilirubin Negative Urine Urobilinogen Normal Ur Leukocyte Esterase Negative Urine RBC 0 SEEN Urine WBC 0 SEEN Ur Squamous Epith Cells 0-5 SEEN Urine Bacteria 0 SEEN Urine Mucus 0 SEEN Radiography Diagnostic Testing: Clinical Impression(s) from Imaging Studies Abdomen/Pelvis CT 12/06/22 12:21 IMPRESSION: No acute abnormality is seen. Electronically Signed: Parviz Gomez MD at 12:54 EDT , Discharge Plan Triage Chief Complaint: Flank Pain ED Provider: Eddi Shay Dx/Rx/DC Orders Clinical Impression: Left flank pain, Vomiting Instructions: ED Flank Pain, Uncertain Cause, ED Vomiting (Adult) Prescriptions: New cyclobenzaprine [cyclobenzaprine] 10 mg tablet 10 mg PO TID PRN (Reason: Muscle Spasm) Qty: 15 0RF ibuprofen 600 mg tablet 600 mg PO Q6H PRN PRN (Reason: pain) Qty: 20 0RF ondansetron [ondansetron] 4 mg tablet,disintegrating 4 mg PO Q6H PRN PRN (Reason: Nausea) Qty: 15 0RF Primary Care Provider: Reji Monae Referrals: Reji Monae MD [Primary Care Provider] - 10-14 Days if not better Disposition Disposition: Home, Self Care
--- NOTE | 2022-12-06 12:21 | CT_ITS ---
STUDY: CT ABDOMEN AND PELVIS WITHOUT CONTRAST REASON FOR EXAM: Male, 37 years old. Left flank pain RADIATION DOSAGE (If Supplied By Facility): CTDIvol = ( 33.21 ) mGy, DLP = ( 1875.06 ) mGycm TECHNIQUE: Transaxial images were obtained from the dome of the diaphragm to the symphysis pubis without oral contrast, and without intravenous contrast. Sagittal and coronal images were reconstructed. Individualized dose optimization techniques were used for this CT. COMPARISON: Comparison is made with prior study dated August 19, 2022. FINDINGS: The visualized lung bases are unremarkable. The visualized portions of the heart are within normal limits. Normal liver. Normal gallbladder and extrahepatic biliary system. Normal spleen. Normal pancreas. Normal bilateral adrenal glands. Normal right kidney. Normal left kidney. Normal visualized stomach. Normal small intestine. Normal colon. The appendix is visualized and appears normal. Normal abdominal aorta. Normal inferior vena cava. There is a small retroperitoneal lymphadenopathy with enlarged nodes no greater than 10mm in the short axis diameter. Normal urinary bladder. There is a small right-sided inguinal hernia containing adipose tissue. Normal osseous structures. Straightening of the normal lumbar lordosis. CT/Abdomen/Pelvis without Cont IMPRESSION: No acute abnormality is seen. Electronically Signed: Parviz Gomez MD at 12:54 EDT ,
[2022-12-06 12:22] LABS: Anion Gap 5 (5-15); BUN 8 mg/dL (7-18); BUN/Creat Ratio 9.9 RATIO (10-20); Calcium,Total 9.1 mg/dL (8.5-10.1); Chloride 108 mmol/L (98-107); Creatinine, Serum 0.81 mg/dL (0.70-1.30); EST Glomerular Filtration Rate 115 mL/min (>60); Est Glom Filt Rate - Afr Amer 139 mL/min (>60); Estimated Creatinine Clearance 138.38 ml/min; Glucose 79 mg/dL (74-106); Potassium 3.8 mmol/L (3.5-5.1); Sodium Level 140 mmol/L (136-145)
[2022-12-06] MEDS: 0.9% Normal Saline 1,000 ML 1000 ML IV (12:29)
[2022-12-06] MEDS: Ondansetron 4 MG/2 ML Vial IV (12:29)
[2022-12-06] MEDS: Ketorolac 30 MG/ML Syringe IV (12:30)
[2022-12-06 14:36] VITALS: BP 139/86; PULSE 89; RESP 14; O2SAT 97
== END 2022-12-06 14:59 | disposition home or self-care (01) ==
PROVIDERS: Emergency Provider Emergency Medicine; PCP Family Medicine; Visit Provider Emergency Medicine
DX: R10.9 Unspecified abdominal pain (principal); R11.10 Vomiting, unspecified; F17.210 Nicotine dependence, cigarettes, uncomplicated; E66.9 Obesity, unspecified
CPT/HCPCS: 74176; 80048; 81001; 85025; 96374; 96375; 99283; J2405

== ENCOUNTER 2023-01-26 20:02 | Emergency (ER) | payer MEDICAID, SELFPAY ==
[2023-01-26 20:03] VITALS: BP 133/96; PULSE 108; RESP 15; TEMP 36.8; O2SAT 98; BMI 47.3
--- NOTE | 2023-01-26 20:09 | EDS_ITS ---
HPI <GUERO Dubois - Last Filed: 01/26/23 21:01> History of Present Illness Chief Complaint: Lower Extremity Injury Narrative Narrative: Patient is a 37-year-old male with history of obesity, has been told that he has neuropathy presents to the emergency department for 1 week of worsening left foot pain. Patient states the pain is on the plantar surface however he does have burning sensation to his ankle. He denies any known injury. 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 He states he does see a PCP however has not seen him in 2 to 3 years. Patient states he drinks a lot of Monster and red bull. He does not take the best care of himself. PFSH <GUERO Dubois - Last Filed: 01/26/23 21:01> PFSH Medical History Chest pain Home Medications cyclobenzaprine 10 mg tablet 10 mg PO TID PRN Muscle Spasm #15 TABLETS 12/06/22 [Rx Last Taken Unknown] ibuprofen 600 mg tablet 600 mg PO Q6H PRN PRN pain #20 TABLETS 12/06/22 [Rx Last Taken Unknown] ondansetron 4 mg disintegrating tablet 4 mg PO Q6H PRN PRN Nausea #15 tabs 12/06/22 [Rx Last Taken Unknown] ibuprofen 600 mg tablet 600 mg PO Q6H PRN PRN pain #20 TABLETS 01/26/23 [Rx Last Taken Unknown] Allergy/AdvReac Type Severity Reaction Status Date / Time No Known Allergies Allergy Verified 01/26/23 20:06 Social History Smoking Status: Current every day smoker tobacco type: cigarettes ROS <GUERO Dubois - Last Filed: 01/26/23 21:01> ROS ED ROS Narrative Constitutional: Negative for fever, chills, weight loss, weakness Eyes: Negative for vision loss, vision change, double vision ENT: Negative for any sore throat, ear pain, congestion Cardiovascular: Negative for any chest pain, tightness, palpitations Respiratory: Negative for any cough, sputum production, hemoptysis, dyspnea, dyspnea on exertion, orthopnea Gastrointestinal: Negative for any abdominal pain, nausea, vomiting, diarrhea, constipation, blood in stool, blood in vomit : Negative for any urinary frequency, dysuria, retention, blood in urine Muscle skeletal: Negative for any muscle joint pain, stiffness, myalgias, arthralgias, neck pain, back pain. Positive for left foot pain Neurological: Negative for any headache, syncope, numbness or tingling, dizziness Skin: Negative for any rashes, lumps, itching, abrasions, lacerations Psychiatric: Negative for any depression, anxiety, stress, suicidal ideation, homicidal ideation Hematologic: Negative for any easy bruising, excessive bruising, easy bleeding Allergies: Negative for any eczema, hives, rash EXAM <GUERO Dubois - Last Filed: 01/26/23 21:01> Physical Exam Narrative Exam Narrative: Vital signs reviewed. Extremities: No peripheral edema, no signs of gross trauma or deformity. Active full range of motion of all extremities. Patient is +2 pedal pulse. Patient is most of the pain on the plantar surface. She will dorsiflex, plantarflex against resistance. Denies any numbness or tingling. There is no signs of trauma. Neuro: Cranial nerves II through XII intact, no focal neurological deficits. Skin: Clean dry and intact with no rash, purpura, petechiae, vesicles or pustules. Backs/flank: No CVA tenderness, no midline spinal tenderness, no deformity. Psych: Normal mood and affect. No SI, HI or acute psychosis. Const Vital Signs: 01/26/23 20:03 Temperature 98.2 F Temperature Source Temporal Pulse Rate 108 H Respiratory Rate 15 Blood Pressure 133/96 H Blood Pressure Mean 108 Pulse Ox 98 Oxygen Delivery Method Room Air <Dr. J Carlos Wharton MD - Last Filed: 01/26/23 21:00> Physical Exam Const Vital Signs: 01/26/23 20:03 Temperature 98.2 F Temperature Source Temporal Pulse Rate 108 H Respiratory Rate 15 Blood Pressure 133/96 H Blood Pressure Mean 108 Pulse Ox 98 Oxygen Delivery Method Room Air MDM <GUERO Dubois - Last Filed: 01/26/23 21:01> [facility] Lab Data Labs: Laboratory Results - last 24 hr 01/26/23 20:22 POC Glucose 150 H Radiography Diagnostic Testing: Clinical Impression(s) from Imaging Studies Foot X-Ray 01/26/23 20:10 IMPRESSION: Normal x-ray examination of the foot. Electronically Signed: Balbir Freeman MD at 20:50 EDT , Treatment and Re-Evaluation :: Patient appears generally well, patient appears nontoxic, vital signs are stable. Presents to the emergency department with complaints of left foot pain. Differential diagnosis includes foot fracture, plantar fasciitis, neuropathy, foot contusion. Patient received 3 view x-ray of the left foot, this will be interpreted by the ER physician. Patient's x-ray 3 view interpreted by ER physician was unremarked for any acute osseous abnormality. Physical examination is consistent with plantar fasciitis. Patient to follow-up with podiatry, placed in a postop shoe, anti-inflammator ies, ice and rest. All questions were answered, patient stable for discharge. <Dr. J Carlos Wharton MD - Last Filed: 01/26/23 21:00> [facility] Narrative Medical decision making narrative: I have personally performed a face to face assessment of the patient and have reviewed the STORMY Note. I performed a substantive portion of the visit including all aspects of the following. My samuel findings include: History is 37-year-old male pain at the bottom of his left foot primarily with walking. He does a lot of walking at work. Denies any trauma. No prior surgery to the foot. Exam is [well-appearing 37-year-old male. Vital signs stable afebrile. H EENT exam unremarkable. Neck nontender. Lungs are clear. Heart regular rhythm. Abdomen soft. Moves all 4 extremities. Specifically the left foot appears normal. His ankle is nonswollen. He has normal dorsi plantarflexion. He is able to wiggle his toes. He is normal DP pulse. Normal touch sensation. When he struck the bottom of his foot he has considerable discomfort only in the left foot consistent with plantar fasciitis. Right foot is unremarkable nontender. Rest of exam unremarkable.] Medical Decision Making [left foot x-ray 3 views turbid by herself shows no acute abnormality. No fracture. Also read by the radiologist and agrees. Patient be treated for Planter fasciitis with anti-inflammatories. Postop shoe. Ice. Follow-up with podiatry if not improving.] Other additions or changes: [None] History & Record Review Discussion w/independent historian: Patient and Family Lab Data Labs: Laboratory Results - last 24 hr 01/26/23 20:22 POC Glucose 150 H Radiography Diagnostic Testing: Clinical Impression(s) from Imaging Studies Foot X-Ray 01/26/23 20:10 IMPRESSION: Normal x-ray examination of the foot. Electronically Signed: Balbir Freeman MD at 20:50 EDT , Left foot x-ray, 3 views, interpreted by myself and the radiologist shows no acute abnormality. No fracture or dislocation. Discharge Plan Triage Chief Complaint: Lower Extremity Injury ED Midlevel Provider: John Bingham ED Provider: J Carlos Wharton Dx/Rx/DC Orders Clinical Impression: Plantar fasciitis, Plantar fasciitis of left foot Instructions: ED Plantar Fasciitis Prescriptions: New ibuprofen 600 mg tablet 600 mg PO Q6H PRN PRN (Reason: pain) Qty: 20 0RF No Action cyclobenzaprine [cyclobenzaprine] 10 mg tablet 10 mg PO TID PRN (Reason: Muscle Spasm) Qty: 15 0RF ibuprofen 600 mg tablet 600 mg PO Q6H PRN PRN (Reason: pain) Qty: 20 0RF ondansetron [ondansetron] 4 mg tablet,disintegrating 4 mg PO Q6H PRN PRN (Reason: Nausea) Qty: 15 0RF Primary Care Provider: Reji Monae Referrals: Reji Monae MD [Primary Care Provider] - Eddi Lopez DPM [Med Staff - Active Staff] - Activity Restrictions/Additional Instructions: Ice the bottom of your foot. Rest. Postop shoe for walking. Motrin 600 mg 3 times a day for the next week. 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 Disposition Disposition: Home, Self Care
--- NOTE | 2023-01-26 20:10 | RAD_ITS ---
STUDY: X-RAY - LEFT FOOT CLINICAL: Male, 37 years old. pain TECHNIQUE: 3 view(s) of the foot. COMPARISON: None. FINDINGS: Normal talus, calcaneus, and tarsal bones. Small posterior calcaneal enthesophyte. Normal visualized subtalar, talonavicular, calcaneocuboid, tarsal and tarsometatarsal articulations. Normal metatarsi. Normal metatarsophalangeal joint of the great toe. Normal tibial and fibular sesamoid bones. Normal interphalangeal joint of the great toe. Normal phalanges of the great toe. Normal second through fifth metatarsophalangeal joints. Normal interphalangeal joints and phalanges of the lesser toes. The soft tissue structures are unremarkable. RAD/Foot min 3 Views IMPRESSION: Normal x-ray examination of the foot. Electronically Signed: Balbir Freeman MD at 20:50 EDT ,
[2023-01-26 20:41] LABS: Bedside Glucose 150 mg/dL (74-106)
== END 2023-01-26 21:10 | disposition home or self-care (01) ==
PROVIDERS: Emergency Provider Emergency Medicine; PCP Family Medicine; Visit Provider Emergency Medicine
DX: M72.2 Plantar fascial fibromatosis (principal); F17.210 Nicotine dependence, cigarettes, uncomplicated
CPT/HCPCS: 73630; 82962; 99283

== ENCOUNTER 2023-10-15 19:33 | Emergency (ER) | payer OTHER, MEDICAID, SELFPAY ==
[2023-10-15 19:34] VITALS: BP 133/93; PULSE 99; RESP 18; TEMP 36.6; O2SAT 98; BMI 43.5
--- NOTE | 2023-10-15 19:36 | EKG12_ITS ---
Test Reason : CP Blood Pressure : / mmHG Vent. Rate : 084 BPM Atrial Rate : 084 BPM P-R Int : 142 ms QRS Dur : 094 ms QT Int : 350 ms P-R-T Axes : 011 -13 032 degrees QTc Int : 413 ms Normal sinus rhythm Normal ECG Confirmed by HUY BLANCO, UBALDO ([id number]), order editor FABY WEIR ([id number]) on 10/22/2023 10:33:46 A M Referred By: VENKATA Confirmed By:GALLO SON MD
--- NOTE | 2023-10-15 20:10 | RAD_ITS ---
EXAM: XR CHEST, 1 VIEW CLINICAL INDICATION: chest pain TECHNIQUE: Frontal view of the chest. COMPARISON: No relevant prior studies available. FINDINGS: LUNGS AND PLEURAL SPACES: Unremarkable. No consolidation or edema. No pneumothorax. No effusion. HEART: Unremarkable. Cardiac silhouette not enlarged. MEDIASTINUM: Central airways and mediastinal contour are unremarkable. BONES/JOINTS: Unremarkable. No acute fracture. SOFT TISSUES: Unremarkable. RAD/Chest 1 View (Portable) IMPRESSION: No radiographic evidence of acute cardiopulmonary disease. Electronically Signed: Darrius Munoz MD at 20:28 EDT ,
[2023-10-15 20:13] VITALS: BP 146/94; PULSE 84; RESP 22; O2SAT 94
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
[2023-10-15] MEDS: Ibuprofen 400 MG Tablet 800 MG PO (20:31)
[2023-10-15 20:41] VITALS: BP 156/83; PULSE 91; RESP 18; TEMP 36.5; O2SAT 94
== END 2023-10-15 20:42 | disposition home or self-care (01) ==
PROVIDERS: Emergency Provider Emergency Medicine; PCP Family Medicine; Visit Provider Emergency Medicine
DX: S29.011A Strain of muscle and tendon of front wall of thorax, initial encounter (principal); F17.210 Nicotine dependence, cigarettes, uncomplicated; X58.XXXA Exposure to other specified factors, initial encounter
CPT/HCPCS: 71045; 93005; 99283

== ENCOUNTER 2024-09-05 19:35 | Emergency (ER) | payer MEDICAID, SELFPAY ==
[2024-09-05 19:35] VITALS: BP 136/98; PULSE 86; RESP 18; TEMP 36.6; O2SAT 98; BMI 43.8
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
[2024-09-05] MEDS: Ketorolac 30 MG/ML Syringe IM (20:17)
[2024-09-05] MEDS: Orphenadrine 100 MG Tablet PO (20:18)
[2024-09-05 21:13] VITALS: BP 135/85; PULSE 85; RESP 12; TEMP 36.9; O2SAT 95
== END 2024-09-05 21:13 | disposition home or self-care (01) ==
PROVIDERS: Emergency Provider Emergency Medicine; PCP Family Medicine; Visit Provider Emergency Medicine
DX: M54.50 Low back pain, unspecified (principal); F17.210 Nicotine dependence, cigarettes, uncomplicated
CPT/HCPCS: 96372; 99282

== ENCOUNTER 2024-09-14 18:28 | Emergency (ER) | payer MEDICAID, SELFPAY ==
[2024-09-14 18:28] VITALS: BP 149/96; PULSE 95; RESP 16; TEMP 36.6; O2SAT 95; BMI 43.9
== END 2024-09-14 23:23 | disposition left against medical advice (07) ==
LOC: ED 23:30
PROVIDERS: PCP Family Medicine
DX: Z53.21 Procedure and treatment not carried out due to patient leaving prior to being seen by health care provider (principal)

== ENCOUNTER 2024-09-16 12:42 | Emergency (ER) | payer MEDICAID, SELFPAY ==
[2024-09-16 12:43] VITALS: BP 144/97; PULSE 89; RESP 16; TEMP 36.5; O2SAT 98; BMI 43.9
[2024-09-16] MEDS: Ketorolac 30 MG/ML Syringe IV (13:30)
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
[2024-09-16 13:33] LABS: Absolute Lymphocyte Count 3.85 X10^3/uL (0.83-4.51); Absolute Neutrophil Count 8.6 X10^3/uL (2.0-7.7); Basophil% 0.7 % (0-1); Eosinophil# 0.46 X10^3/uL; Eosinophils% 3.2 % (0-5); Hematocrit 46.5 % (40-54); Lymphocyte # 3.85 X10^3/ul (0.83-4.51); Mean Corp Hgb Conc 34.4 g/dL (32-36); Mean Corpuscular Hgb 30.5 pg (27.0-32.0); Mean Corpuscular Volume 88.6 fL (80-94); Mean Platelet Vol. 9.6 fl (6.2-12.0); Monocyte# 1.07 X10^3/uL; Monocyte% 7.5 % (0-10); NRBC Flagged by Analyzer 0 % (0-5); Neutrophil # 8.62 X10^3/uL (2.7-7.7); Neutrophil % 60.5 % (47-70); Platelet Count 215 K/mm3 (150-450); RBC Distribution Width CV 13.3 % (11.6-14.6); RBC Distribution Width SD 43.2 fl (35.1-43.9); Red Blood Count 5.25 M/mm3 (4.6-6.2); White Blood Count 14.3 K/mm3 (4.4-11.0)
--- NOTE | 2024-09-16 13:43 | CT_ITS ---
PROCEDURE: ABDOMEN/PELVIS W IV CONT ONLY 09/16/2024 REASON FOR EXAM: RLQ PAIN Back pain. TECHNIQUE: Abdomen and pelvis CT with intravenous contrast. Coronal and Sagittal reconstruction series were provided. PATIENT PREPARATION: Per protocol ORAL CONTRAST TYPE: None. CONTRAST: Isovue-300 VOLUME: 100 mL One or more dose reduction techniques were used (e.g., Automated exposure control, adjustment of the mA and/or kV according to patient size, use of iterative reconstruction technique. RADIATION DOSE SUMMARY: CTDlvol: 19 mGy DLP: 1379.8 mGycm COMPARISON: Prior study dated December 06, 2022. FINDINGS: Lung bases: Clear. Liver: Normal size. No mass. Gallbladder: Unremarkable Spleen: Normal size. Pancreas: Normal size without evidence of mass surrounding inflammation or ductal dilation. Adrenals: Unremarkable Kidneys: Normal renal sizes. No hydronephrosis. Bladder: Unremarkable Bowel: Scattered sigmoid diverticula Appendix: Unremarkable Lymph nodes: No suspicious lymph node enlargement. Small retroperitoneal lymph nodes. Vasculature: The abdominal aorta and IVC are normal. Peritoneum / Retroperitoneum: Small retroperitoneal lymph nodes Bones: Unremarkable CT/Abdomen/Pelvis W IV Cont ONLY IMPRESSION: UNREMARKABLE CONTRAST-ENHANCED CT OF THE ABDOMEN AND PELVIS OVERALL FINAL ASSESSMENT: Stable examination.. Reading Location: [place] [id number]
[2024-09-16 13:56] LABS: ALB/GLOB Ratio 1.4 RATIO (0.9-2.4); AST(SGOT) 16 U/L (<=37); Alanine Aminotransfer ALT/SGPT 26 U/L (<=46); Albumin, Serum 3.8 g/dL (3.5-5.0); Alkaline Phosphatase 78 U/L (40-129); Anion Gap 10 (5-15); BUN 14 mg/dL (4-19); BUN/Creat Ratio 19.7 RATIO (10-20); Carbon Dioxide 24.2 mmol/L (21.0-32.0); Chloride 105 mmol/L (98-108); Creatinine, Serum 0.72 mg/dL (0.70-1.20); EST Glomerular Filtration Rate 120 (>60); Estimated Creatinine Clearance 207.43 ml/min (50-250); Globulin 2.7 g/dL (2.2-4.2); Glucose 105 mg/dL (70-99); Potassium 3.7 mmol/L (3.3-5.1); Protein, Total 6.5 g/dL (5.9-8.4); Sodium Level 140 mmol/L (133-145)
[2024-09-16 14:27] LABS: Bacteria 0 SEEN /hpf (None Seen); Mucous, Urine 0 SEEN /hpf (<or=2+)
[2024-09-16 14:31] LABS: Color, Urine Yellow (Yellow); Glucose, Dipstick Normal (Normal); Ketone-Dipstick Negative (Negative); Leukocyte Esterase-Dipstick Negative /ul (Negative); Nitrite-Dipstick Negative (Negative); Occult Blood-Urine 25 /ul (Negative); Protein-Dipstick 30 mg/dl (Negative); Specific Gravity, Urine 1.015 (1.002-1.030); Urine Bilirubin Dipstick Negative (Negative); Urine Clarity Clear (Clear); Urine Urobilinogen Normal (Normal)
[2024-09-16 14:59] LABS: Red Blood Cells-Urine 0-5 SEEN /hpf (0-5); Squamous Epithelial Cells - UA 0-5 SEEN /hpf (0-5); Uric Acid Crystals Ur RARE /hpf (<or=1+); White Blood Cells 0-5 SEEN /hpf (0-5)
== END 2024-09-16 15:04 | disposition home or self-care (01) ==
PROVIDERS: Physician Assistant; Emergency Provider Emergency Medicine; PCP Family Medicine; Visit Provider Emergency Medicine
DX: M54.16 Radiculopathy, lumbar region (principal); R10.9 Unspecified abdominal pain; I10 Essential (primary) hypertension; F17.210 Nicotine dependence, cigarettes, uncomplicated
CPT/HCPCS: 74177; 80053; 81001; 85025; 96374; 96376; 99282; Q9967; A4216

== ENCOUNTER 2025-01-04 12:20 | Emergency (ER) | payer MEDICAID, SELFPAY ==
[2025-01-04 12:21] VITALS: BP 172/85; PULSE 102; RESP 18; TEMP 35.7; O2SAT 97; BMI 47.4
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
[2025-01-04] MEDS: Lidocaine 1% (20 ml mdv) 20 ML Vial INFILT (14:18)
[2025-01-04 15:03] VITALS: BP 147/73; PULSE 84; RESP 17; TEMP 36.8; O2SAT 99
== END 2025-01-04 15:03 | disposition home or self-care (01) ==
PROVIDERS: Emergency Provider Emergency Medicine; PCP Family Medicine; Visit Provider Emergency Medicine
DX: S51.812A Laceration without foreign body of left forearm, initial encounter (principal); F17.210 Nicotine dependence, cigarettes, uncomplicated; X58.XXXA Exposure to other specified factors, initial encounter
CPT/HCPCS: 12001; 99283